=== PATIENT | female | born 1995 | race Two or more races ===

== ENCOUNTER 2025-03-08 21:49 | Emergency (ER) | payer MEDICAID, OTHER ==
[~2025-03-08] VITALS: Ht 162.6 cm; Wt 84.0 kg
[2025-03-08 21:50] VITALS: BP 155/84; PULSE 118; RESP 18; TEMP 98; O2SAT 98
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
== END 2025-03-09 03:13 | disposition home or self-care (01) ==
LOC: ER 21:49 → EDBD 21:49 → ER 03-09 03:13
DX: S13.4XXA Sprain of ligaments of cervical spine, initial encounter (principal); S63.8X2A Sprain of other part of left wrist and hand, initial encounter; S09.8XXA Other specified injuries of head, initial encounter; V98.8XXA Other specified transport accidents, initial encounter; Y93.I9 Activity, other involving external motion; Y92.488 Other paved roadways as the place of occurrence of the external cause; Y99.8 Other external cause status
CPT/HCPCS: 70450; 72125; 73130